=== PATIENT | male | born 1970 | race Caucasian/White ===

== ENCOUNTER 2017-01-25 09:48 | Emergency (ER) | payer OTHER, BC ==
[~2017-01-25] VITALS: Ht 185.4 cm; Wt 138.9 kg
[2017-01-25] MEDS ORDERED: NEUR300C PO (09:59)
[2017-01-25] MEDS ORDERED: TIZA4CAP3 PO (09:59)
[2017-01-25] MEDS ORDERED: GABA-282 PO ×2 (09:59)
[2017-01-25] MEDS ORDERED: DICL75TA PO (09:59)
[2017-01-25] MEDS ORDERED: ZOCO20TA PO (09:59)
[2017-01-25] MEDS ORDERED: ASPI81TA85 PO (09:59)
[2017-01-25 11:09] VITALS: BP 150/90
== END 2017-01-25 11:10 | disposition home or self-care (01) ==
LOC: EDBD 09:48 → M ED 10:39
DX: S00.93XA Contusion of unspecified part of head, initial encounter (principal); W18.00XA Striking against unspecified object with subsequent fall, initial encounter; Y92.139 Unspecified place military base as the place of occurrence of the external cause; Y93.89 Activity, other specified; Y99.1 Military activity; M54.30 Sciatica, unspecified side; Z79.82 Long term (current) use of aspirin; Z79.899 Other long term (current) drug therapy

== ENCOUNTER → 2017-05-17 | Outpatient (REF) | payer BC ==
[~2017-05-17] MED LIST: ASPI81TA85 PO; DICL75TA PO; GABA-282 PO; NEUR300C PO; TIZA4CAP3 PO; ZOCO20TA PO
== END ==
LOC: M SFHCLERA 08:07
PROVIDERS: ATTEND Family Medicine
DX: E66.01 Morbid (severe) obesity due to excess calories (principal)

== ENCOUNTER → 2017-08-17 | Outpatient (REF) | payer BC ==
[2017-08-17 11:51] LABS: BASO % 0.6 % (0.0-1.0); EOS # 0.1 10^3/uL (0.0-0.50); EOS % 1.8 % (0.0-3.0); HEMOGLOBIN 15.5 g/dl (14.0-18.0); IMMATURE GRANULOCYTE % 0.2 % (0-0); LYMPH # 1.4 10^3/uL (1.5-4.5); LYMPH % 28.1 % (24.0-44.0); MEAN CORPUSCULAR HEMOGLOBIN 30.2 pg (27.0-33.0); MEAN CORPUSCULAR HGB CONC 34.4 g/dl (32.0-36.5); MEAN CORPUSCULAR VOLUME 87.5 fl (80.0-96.0); MONO # 0.3 10^3/uL (0.0-0.8); MONO % 5.8 % (0.0-5.0); NEUTROPHILS # 3.2 10^3/uL (1.8-7.7); NEUTROPHILS % 63.5 % (36.0-66.0); PLATELET COUNT, AUTOMATED 205 10^3/uL (150-450); RED BLOOD COUNT 5.14 10^6/uL (4.30-6.10); RED CELL DISTRIBUTION WIDTH 12.9 % (11.5-14.5)
[2017-08-17 12:03] LABS: ALBUMIN 4.2 GM/DL (3.2-5.2); ALBUMIN/GLOBULIN RATIO 1.35 (1.00-1.93); ALKALINE PHOSPHATASE 101 U/L (45-117); ALT/SGPT 58 U/L (12-78); ANION GAP 6 MEQ/L (8-16); AST/SGOT 30 U/L (7-37); BILIRUBIN,TOTAL 0.4 MG/DL (0.2-1.0); BLOOD UREA NITROGEN 25 MG/DL (7-18); CALCIUM LEVEL 8.6 MG/DL (8.5-10.1); CARBON DIOXIDE LEVEL 31 MEQ/L (21-32); CHLORIDE LEVEL 105 MEQ/L (98-107); CHOLESTEROL LEVEL 159 MG/DL (<200); CHOLESTEROL RISK RATIO 2.741 (<5); CREATININE FOR GFR 0.87 MG/DL (0.70-1.30); GLOMERULAR FILTRATION RATE > 60.0 (>60); GLUCOSE, FASTING 108 MG/DL (70-105); HDL CHOLESTEROL 58 MG/DL (>40); LDL CHOLESTEROL 64.6 MG/DL (<100); NON-HDL-C 101 MG/DL; POTASSIUM SERUM 4.3 MEQ/L (3.5-5.1); SODIUM LEVEL 142 MEQ/L (136-145); TOTAL PROTEIN 7.3 GM/DL (6.4-8.2); TRIGLYCERIDES LEVEL 182 MG/DL (<150)
[2017-08-17 12:12] LABS: ESTIMATED AVERAGE GLUCOSE 117 MG/DL (60-110); HEMOGLOBIN A1c 5.7 %
== END ==
LOC: M SFHCLERA 08:12
DX: E66.01 Morbid (severe) obesity due to excess calories (principal)
CPT/HCPCS: 84443

== ENCOUNTER → 2018-06-08 | Outpatient (REF) | payer BC ==
[2018-06-08 12:51] LABS: ALBUMIN 4.4 GM/DL (3.2-5.2); ALBUMIN/GLOBULIN RATIO 1.57 (1.00-1.93); ALKALINE PHOSPHATASE 85 U/L (45-117); ALT/SGPT 46 U/L (12-78); ANION GAP 6 MEQ/L (8-16); AST/SGOT 26 U/L (7-37); BILIRUBIN,TOTAL 0.4 MG/DL (0.2-1.0); BLOOD UREA NITROGEN 19 MG/DL (7-18); CALCIUM LEVEL 9.2 MG/DL (8.5-10.1); CARBON DIOXIDE LEVEL 31 MEQ/L (21-32); CHLORIDE LEVEL 104 MEQ/L (98-107); CHOLESTEROL LEVEL 153 MG/DL (<200); CREATININE FOR GFR 0.96 MG/DL (0.70-1.30); GLOMERULAR FILTRATION RATE > 60.0 (>56); GLUCOSE, FASTING 106 MG/DL (70-100); HDL CHOLESTEROL 60 MG/DL (>40); LDL CHOLESTEROL 80 MG/DL (<100); NON-HDL-C 93 MG/DL; POTASSIUM SERUM 4.3 MEQ/L (3.5-5.1); SODIUM LEVEL 141 MEQ/L (136-145); TOTAL PROTEIN 7.2 GM/DL (6.4-8.2); TRIGLYCERIDES LEVEL 64 MG/DL (<150)
[2018-06-08 13:05] LABS: ESTIMATED AVERAGE GLUCOSE 123 MG/DL (60-110); HEMOGLOBIN A1c 5.9 %
== END ==
LOC: M SFHCLERA 08:15
DX: E66.01 Morbid (severe) obesity due to excess calories (principal)
CPT/HCPCS: 80053

== ENCOUNTER 2018-07-13 08:50 | Day surgery (SDC) | payer BC ==
[~2018-07-13] VITALS: Ht 185.4 cm; Wt 136.4 kg
[~2018-07-13 08:50] MED LIST changes: +ATOR40TA75 PO; -GABA-282 PO; +GABA-843 PO; +GABA-845 PO; +MULTCAP PO; +TIZA4CAP PO; -TIZA4CAP3 PO
[2018-07-13] MEDS ORDERED: PROPOFOL 200 MG/20 ML VIAL As Ordered ONE (09:13)
[2018-07-13] MEDS ORDERED: LIDOCAINE 2% INJ 100 MG/5 ML SDV (FOR ANES.) As Ordered ONE (09:13)
[2018-07-13] MEDS ORDERED: NS 1,000 ML IV ONE (09:30)
--- NOTE | 2018-07-13 11:09 | ROOR ---
Patient Name: Greg Cortez Procedure Date: 07/13/2018 10:23 AM Date of : 1970 Age: 48 Room: [facility] Gender: Male Note Status: Finalized Procedure: Colonoscopy Indications: Screening for colorectal malignant neoplasm Providers: Humphrey Quinteros MD Referring MD: Ernesto CABAN MD Requesting Provider: Medicines: Monitored Anesthesia Care Complications: No immediate complications. Procedure: Pre-Anesthesia Assessment: - Prior to the procedure, a History and Physical was performed, and patient medications and allergies were reviewed. The patient is competent. The risks and benefits of the procedure and the sedation options and risks were discussed with the patient. All questions were answered and informed consent was obtained. Patient identification and proposed procedure were verified by the physician, the nurse and the anesthesiologist in the procedure room. Mental Status Examination: alert and oriented. Airway Examination: normal oropharyngeal airway and neck mobility. Respiratory Examination: clear to auscultation. CV Examination: normal. Prophylactic Antibiotics: The patient does not require prophylactic antibiotics. Prior Anticoagulants: The patient has taken no previous anticoagulant or antiplatelet agents. ASA Grade Assessment: II - A patient with mild systemic disease. After reviewing the risks and benefits, the patient was deemed in satisfactory condition to undergo the procedure. The anesthesia plan was to use monitored anesthesia care (MAC). Immediately prior to administration of medications, the patient was re-assessed for adequacy to receive sedatives. The heart rate, respiratory rate, oxygen saturations, blood pressure, adequacy of pulmonary ventilation, and response to care were monitored throughout the procedure. The physical status of the patient was re-assessed after the procedure. The Colonoscope was introduced through the anus and advanced to the terminal ileum, with identification of the appendiceal orifice and IC valve. The colonoscopy was performed without difficulty. The patient tolerated the procedure well. The quality of the bowel preparation was good. The terminal ileum, ileocecal valve, appendiceal orifice, and rectum were photographed. Scope insertion time was 4 minutes. Scope withdrawal time was 10 minutes. The total duration of the procedure was 14 minutes. Findings: The perianal and digital rectal examinations were normal. The terminal ileum appeared normal. Patchy mild inflammation characterized by erosions and aphthous ulcerations was found in the recto-sigmoid colon and in the descending colon. Biopsies were taken with a cold forceps for histology. Verification of patient identification for the specimen was done by the physician and nurse using the patient's name, date and medical record number. Estimated blood loss was minimal. Non-bleeding external and internal hemorrhoids were found during retroflexion. The hemorrhoids were small. There is no endoscopic evidence of polyps in the entire colon. Impression: - The examined portion of the ileum was normal. - Patchy mild inflammation was found in the recto-sigmoid colon and in the descending colon secondary to colitis. Biopsied. - Non-bleeding external and internal hemorrhoids. Recommendation: - Patient has a contact number available for emergencies. The signs and symptoms of potential delayed complications were discussed with the patient. Return to normal activities tomorrow. Written discharge instructions were provided to the patient. - High fiber diet. - Continue present medications. - Await pathology results. - Repeat colonoscopy in 10 years for screening purposes. - Based on the biopsy results you will receive a phone call from GI clinic in 2-3 weeks to review the pathology results AND/OR your results will be faxed to your Primary care physician. - Return to primary care physician. Humphrey Quinteros MD Humphrey Quinteros MD 07/13/2018 11:09:25 AM This report has been signed electronically. Number of Addenda: 0 Note Initiated On: 07/13/2018 10:23 AM Estimated Blood Loss: Estimated blood loss was minimal.
[2018-07-13 11:20] VITALS: BP 115/55
== END 2018-07-13 11:27 | disposition home or self-care (01) ==
LOC: M OPP 08:50
PROVIDERS: ATTEND Internal Medicine Gastroenterology
DX: Z12.11 Encounter for screening for malignant neoplasm of colon (principal); K64.8 Other hemorrhoids; E78.5 Hyperlipidemia, unspecified; M12.9 Arthropathy, unspecified; Z79.82 Long term (current) use of aspirin; Z79.899 Other long term (current) drug therapy

== ENCOUNTER → 2018-08-29 | Outpatient (CLI) | payer BC ==
--- NOTE | 2018-08-31 13:06 | SLEEPCENT ---
DATE OF PROCEDURE: 08/29/2018 ORDERED BY: TAPAN Orourke Nocturnal polysomnography was performed for evaluation of sleep physiology in this patient with a history of excessive somnolence and snoring who has comorbidities of arthritis and obesity. 7 hours and 7 minutes of data were reviewed. There were 347 minutes of sleep identified. Sleep latency was prolonged at 58 minutes. Rapid eye movement (REM) latency was normal at 97 minutes. Sleep architecture was fair with 3-4 REM cycles. Some fragmentation was seen. Overall sleep efficiency was 82%. The electrocardiogram showed sinus rhythm with an average heart rate of 58 beats per minute. EEG showed normal waveforms for awake and sleep stages. There were 46 respiratory events identified of 10 seconds in duration or greater for an apnea-hypopnea index of 7.9. The events were primarily obstructive not exclusive to sleep stage nor body posture. Arousals from respiratory events occurred 4.5 times per hour and oxygen desaturations were seen into the 80s. There was minimal activity in the limb leads. Limb movement arousals occurred 3.3 times per hour. Snoring was noted. IMPRESSION: Obstructive sleep apnea syndrome (G47.33). Apnea-hypopnea index 7.9. RECOMMENDATIONS: The patient should be encouraged to return to the sleep disorder center for pressure therapy. In the interim, alcohol and sedative avoidance should be practiced and caution exercised during the operation of motor vehicles.
== END ==
LOC: M SLEEP 19:38
PROVIDERS: ATTEND Nurse Practitioner Family
DX: G47.33 Obstructive sleep apnea (adult) (pediatric) (principal); R40.0 Somnolence

== ENCOUNTER → 2018-10-03 | Outpatient (CLI) | payer BC ==
--- NOTE | 2018-10-03 10:08 | REP ---
Clinical: Cough and fatigue . Comparison: 07/04/2014 . Technique: PA and lateral. Findings: The mediastinum and cardiac silhouette are normal. The lung henley are clear and without acute consolidation, effusion, or pneumothorax. The skeletal structures are intact and normal. Impression: 1. No acute cardiopulmonary process. Electronically Signed by Deangelo Morejon MD 10/03/2018 09:59 A
== END ==
LOC: M LRY 09:42
PROVIDERS: ATTEND Physician Assistant
DX: R05 Cough (principal); R53.83 Other fatigue

== ENCOUNTER → 2018-10-10 | Outpatient (CLI) | payer BC ==
--- NOTE | 2018-10-16 23:16 | SLEEPCENT ---
DATE OF PROCEDURE: 10/10/2018 Ordered by: Brandy Hoang Nocturnal polysomnography was performed for the titration of pressure therapy in this patient with obstructive sleep apnea syndrome. Apnea-hypopnea index 7.9. For testing, a [employer] Quattro Mirage full face mask of medium size was used, 5 cm of water pressure were applied to the circuit and the lights extinguished. 6 hours and 22 minutes of data were reviewed. There were 314 minutes of sleep identified. Sleep latency was prolonged at 42 minutes. REM latency was prolonged at 191 minutes. Sleep architecture improved with optimal titration of pressure therapy. Overall sleep efficiency was 83%. The electrocardiogram showed a sinus rhythm with an average heart rate of 54 beats per minute. EEG showed normal waveforms for awake and sleep. Respiratory events were fully palliated with C-PAP at a pressure of +11 and remaining measures of sleep physiology were normal. IMPRESSION Obstructive sleep apnea syndrome (G47.33) RECOMMENDATIONS Nightly use of pressure therapy 11 cm of water.
== END ==
LOC: M SLEEP 19:38
PROVIDERS: ATTEND Nurse Practitioner Family
DX: G47.33 Obstructive sleep apnea (adult) (pediatric) (principal)

== ENCOUNTER → 2018-10-29 | Outpatient (CLI) | payer BC ==
--- NOTE | 2018-10-29 16:33 | REP ---
Clinical: Bilateral groin pain. Technique: Real time junior scale ultrasound examination using linear high frequency transducer. Findings: Right groin appears normal and without evidence for hernia. Left groin demonstrates small fat containing reducible hernia at the internal ring with the peritoneal defect measuring 5.7 mm diameter on Valsalva. Impression: Small reducible fat containing left inguinal hernia at the internal ring. Electronically Signed by Deangelo Morejon MD 10/29/2018 04:25 P
--- NOTE | 2018-10-29 17:59 | REP ---
Scrotal sonography: History: Bilateral inguinal pain. Question occult hernia. Findings: High-resolution bilateral scrotal sonography shows no evidence of intratesticular mass lesion on either side. Right testis measures 4.2 x 2.7 x 3.1 cm. Left testicular dimensions are 4.5 x 2.3 x 3.3 cm. Epididymi are normal and symmetric except for a cyst in the head of the epididymis on the right measuring 0.9 cm. There is a 0.3 cm cyst in the head of the epididymis on the left. Minimal bilateral hydroceles are seen. Testicular Doppler flow is normal bilaterally. Resistive indices are measured at 0.66 on the right and 0.71 on the left. There is no visible hernia or varicocele. Impression: No significant scrotal abnormality. No intratesticular lesion seen. No evidence of hernia. Electronically Signed by Wei Felton MD 10/30/2018 11:28 A
== END ==
LOC: M RAD 15:33
PROVIDERS: ATTEND Family Medicine
DX: K40.90 Unilateral inguinal hernia, without obstruction or gangrene, not specified as recurrent (principal)

== ENCOUNTER → 2018-11-08 | Outpatient (REF) | payer BC ==
[~2018-11-08] MED LIST changes: +TRAM50TA2
[2018-11-08 11:35] LABS: APPEARANCE, URINE CLEAR (CLEAR); BACTERIA, URINE AUTO NEGATIVE (NEGATIVE); BILIRUBIN, URINE AUTO NEGATIVE (NEGATIVE); BLOOD, URINE BLOOD NEGATIVE (NEGATIVE); COLOR, URINE YELLOW (YELLOW); GLUCOSE, URINE (UA) AUTO NEGATIVE (NEGATIVE); KETONE, URINE AUTO NEGATIVE (NEGATIVE); LEUKOCYTE ESTERASE, URINE AUTO NEGATIVE (NEGATIVE); NITRITE, URINE AUTO NEGATIVE (NEGATIVE); PROTEIN, URINE AUTO NEGATIVE (NEGATIVE); RBC, URINE AUTO 0 /HPF (0-3); SPECIFIC GRAVITY URINE AUTO 1.004 (1.002-1.035); SQUAMOUS EPITHELIAL CELL UR AU 0 /HPF (0-6); UROBILINOGEN, URINE AUTO 0.2 mg/dL (0.0-2.0); WBC, URINE AUTO 0 /HPF (0-3)
[2018-11-08 11:46] LABS: ALBUMIN 4.3 GM/DL (3.2-5.2); ALT/SGPT 58 U/L (12-78); BILIRUBIN,TOTAL 0.7 MG/DL (0.2-1.0); BLOOD UREA NITROGEN 11 MG/DL (7-18); CARBON DIOXIDE LEVEL 31 MEQ/L (21-32); CHLORIDE LEVEL 104 MEQ/L (98-107); CREATININE FOR GFR 0.94 MG/DL (0.70-1.30); GLOMERULAR FILTRATION RATE > 60.0 (>56); GLUCOSE, FASTING 94 MG/DL (70-100); SODIUM LEVEL 140 MEQ/L (136-145); TOTAL PROTEIN 7.3 GM/DL (6.4-8.2)
== END ==
LOC: M SFHCLERA 08:10
PROVIDERS: ATTEND Family Medicine
DX: R10.30 Lower abdominal pain, unspecified (principal)

== ENCOUNTER → 2018-11-09 | Outpatient (CLI) | payer BC ==
[~2018-11-09] MED LIST changes: +GASTROGRAFIN SOLUTION 30ML (Q9963) As Ordered ONE; +ISOVUE-370 76% 100ML VIAL (Q9967) As Ordered ONE
--- NOTE | 2018-11-09 18:31 | REP ---
Clinical: Lower abdominal pain. Comparison: 06/04/2015. Technique: Axial contrast enhanced images from the lung bases to the pubic symphysis using oral (per protocol) and 100 ml Isovue 370 intravenous contrast material with coronal and sagittal re-formations. Findings: Lung bases are clear. Visualized heart and pericardium normal. Fatty infiltration to the liver noted without focal hepatic lesion. Spleen, pancreas, gallbladder, bilateral adrenal glands and kidneys are within normal limits / stable. The right kidney demonstrates cortical scarring unchanged compared to 2015. The enteric system is without obstruction or definite acute inflammatory process. The distal appendix is mildly prominent and measures approximately 8 mm diameter with trace adjacent stranding. These findings are nonspecific, but a very mild acute early appendicitis cannot be excluded. Pelvis demonstrates normal bladder and age appropriate prostate/seminal vesicles. No ascites. No free air. No adenopathy. Abdominal aorta and vasculature without aneurysm or dissection. Musculoskeletal structures demonstrate age-related degenerative changes. Impression: 1. Very subtle prominence to the distal appendix raises the suspicion for possible early acute appendicitis and should be correlated clinically. Close observation may be warranted. 2. No further acute abdominopelvic pathology appreciated. 3. Hepatic steatosis. 4. Subtle stable cortical scarring along the posterior aspect of the right kidney. Electronically Signed by Deangelo Morejon MD 11/09/2018 06:23 P
== END ==
LOC: M RAD 15:58
PROVIDERS: ATTEND Family Medicine
DX: R10.30 Lower abdominal pain, unspecified (principal); K76.0 Fatty (change of) liver, not elsewhere classified; N28.89 Other specified disorders of kidney and ureter
CPT/HCPCS: 74177; Q9963; Q9967

== ENCOUNTER 2018-11-12 17:54 | Emergency (ER) | payer BC ==
[~2018-11-12] VITALS: Ht 185.4 cm; Wt 140.9 kg
[~2018-11-12 17:54] MED LIST changes: -GASTROGRAFIN SOLUTION 30ML (Q9963) As Ordered ONE; -ISOVUE-370 76% 100ML VIAL (Q9967) As Ordered ONE; -TRAM50TA2
[2018-11-12] MEDS ORDERED: TRAM50TA2 (18:03)
[2018-11-12] MEDS ORDERED: NS 1,000 ML IV ONE (18:30)
[2018-11-12] MEDS: GASTROGRAFIN SOLUTION 30ML PO SCH ×2 (19:15→19:20)
[2018-11-12 19:19] LABS: BASO % 0.7 % (0.0-1.0); EOS # 0.1 10^3/uL (0.0-0.50); EOS % 1.5 % (0.0-3.0); HEMOGLOBIN 15.5 g/dl (13.5-17.5); LYMPH % 35.8 % (24.0-44.0); MEAN CORPUSCULAR HEMOGLOBIN 29.9 pg (27.0-33.0); MEAN CORPUSCULAR HGB CONC 34.4 g/dl (32.0-36.5); MEAN CORPUSCULAR VOLUME 86.9 fl (80.0-96.0); MONO # 0.3 10^3/uL (0.0-0.8); MONO % 6.2 % (0.0-5.0); NEUTROPHILS # 3.1 10^3/uL (1.8-7.7); NEUTROPHILS % 55.6 % (36.0-66.0); PLATELET COUNT, AUTOMATED 218 10^3/uL (150-450); RED BLOOD COUNT 5.18 10^6/uL (4.30-6.10); WHITE BLOOD COUNT 5.5 10^3/uL (4.0-10.0)
[2018-11-12 19:30] LABS: ALT/SGPT 51 U/L (12-78); BILIRUBIN,DIRECT 0.2 MG/DL (0.0-0.2); BILIRUBIN,TOTAL 0.5 MG/DL (0.2-1.0); BLOOD UREA NITROGEN 13 MG/DL (7-18); CALCIUM LEVEL 8.6 MG/DL (8.5-10.1); CARBON DIOXIDE LEVEL 29 MEQ/L (21-32); CHLORIDE LEVEL 107 MEQ/L (98-107); CREATININE FOR GFR 1.18 MG/DL (0.70-1.30); GLOMERULAR FILTRATION RATE > 60.0 (>56); GLUCOSE, FASTING 190 MG/DL (70-100); LIPASE 293 U/L (73-393); POTASSIUM SERUM 3.6 MEQ/L (3.5-5.1); SODIUM LEVEL 141 MEQ/L (136-145); TOTAL PROTEIN 6.9 GM/DL (6.4-8.2)
[2018-11-12] MEDS ORDERED: MORPHINE 2 MG/ML 1ML SYRINGE (J2270) IV ONE (19:45)
[2018-11-12] MEDS ORDERED: ISOVUE-370 76% 100ML VIAL (Q9967) As Ordered ONE (20:01)
--- NOTE | 2018-11-12 22:04 | REPVR ---
EXAM: CT Abdomen and Pelvis With Contrast EXAM DATE/TIME: 11/12/2018 8:43 PM CLINICAL HISTORY: 48 years old, male; Pain; Abdominal pain; Generalized TECHNIQUE: Imaging protocol: Axial computed tomography images of the abdomen and pelvis with intravenous contrast. Coronal and sagittal reformatted images were created and reviewed. Radiation optimization: All CT scans at this facility use at least one of these dose optimization techniques: automated exposure control; mA and/or kV adjustment per patient size (includes targeted exams where dose is matched to clinical indication); or iterative reconstruction. Contrast material: ISOVUE 370 Contrast volume: 100 ml Contrast route: IV COMPARISON: CT ABD PELVIS WITH CONTRAST 11/09/2018 5:54 PM FINDINGS: Lower thorax: There is minor linear fibrosis at the right lung base. No infiltrate. ABDOMEN: Liver: There is diffuse fatty infiltration of the liver. No focal lesion. Gallbladder and bile ducts: The gallbladder is normal. Bile ducts are nondilated. Pancreas: Normal. No ductal dilation. Spleen: The spleen is normal. Adrenals: Adrenals are normal. Kidneys and ureters: There is posterior cortical scarring of the right kidney unchanged from prior scan. No focal lesion. There is no hydronephrosis. Stomach and bowel: Normal. No obstruction. No mucosal thickening. Appendix: As described on the prior scan the appendix is mildly dilated at 8 mm. On the current scan normal intraluminal air is seen. The wall is not thickened. Minimal adjacent stranding described on the prior scan is present but has not progressed. PELVIS: Bladder: The bladder is normal with no evidence of calculi. Reproductive: Unremarkable as visualized. ABDOMEN and PELVIS: Intraperitoneal space: Normal. No free air. No significant fluid collection. Bones/joints: No acute fracture. No dislocation. Soft tissues: Unremarkable. Vasculature: Normal. No abdominal aortic aneurysm. Lymph nodes: Stable small mesenteric lymph nodes. IMPRESSION: 1. Mildly dilated appendix with minimal adjacent stranding as described on previous scan. On the current scan there is normal intraluminal gas which was not seen on the prior scan and there is normal wall thickness. It is also similar to the appearance on an earlier scan from 06/04/2015. No evidence to indicate progression to acute appendicitis. 2. Fatty liver. Electronically signed by: Franklin Anderson On 11/12/2018 22:04:30 PM
[2018-11-12 22:56] VITALS: BP 123/77
--- NOTE | 2018-11-12 23:49 | REPVR ---
EXAM: US Abdomen Limited, Right Upper Quadrant EXAM DATE/TIME: 11/12/2018 11:30 PM CLINICAL HISTORY: 48 years old, male; Pain; Abdominal pain; Acute; Additional info: Right upper quadrant abdominal pain TECHNIQUE: Imaging protocol: Real-time ultrasound of the abdomen with image documentation. Examination was focused on the right upper quadrant. COMPARISON: CT ABD/PEL W/IV ORAL CONTRAS 11/12/2018 8:35 PM FINDINGS: Liver: The liver is markedly increased in echogenicity consistent with fatty infiltration. This limits evaluation. No focal lesion. Gallbladder: The gallbladder is normal. No stones. The wall is not thickened. Common bile duct: The common bile duct could not be visualized due to overlying bowel gas. Pancreas: The pancreas could not be visualized due to overlying bowel gas. Right kidney: The right kidney measures 11.5 x 5.9 x 6.1 cm. No calculus or hydronephrosis. IMPRESSION: 1. Normal gallbladder. No stones. 2. Hepatic steatosis. No focal lesion. 3. Common bile duct could not be visualized. It was not dilated on the previous CT. Electronically signed by: Franklin Anderson On 11/12/2018 23:49:21 PM
== END 2018-11-13 00:40 | disposition home or self-care (01) ==
LOC: M ED 17:54
DX: R10.11 Right upper quadrant pain (principal); R10.31 Right lower quadrant pain; K76.0 Fatty (change of) liver, not elsewhere classified; E78.5 Hyperlipidemia, unspecified; K40.90 Unilateral inguinal hernia, without obstruction or gangrene, not specified as recurrent; Z79.899 Other long term (current) drug therapy; Z79.82 Long term (current) use of aspirin
CPT/HCPCS: 36415; 74177; 76705; 80048; 80076; 81001; 83605; 83690; 85025; 96361; 96374; 99284; J2270; Q9963; Q9967

== ENCOUNTER → 2020-12-31 | Outpatient (CLI) | payer BC ==
[~2020-12-31] MED LIST changes: -ASPI81TA85 PO; +ASPI81TA86 PO; +GABA-282 PO; +GABA-283 PO; -GABA-843 PO; -GABA-845 PO; +TRAM50TA2
--- NOTE | 2020-12-31 09:08 | REP ---
INDICATION: PAIN COMPARISON: MRI dated 05/14/2016 TECHNIQUE: AP, lateral, bilateral oblique and sunrise views. FINDINGS: Moderate tricompartmental osteoarthritic degenerative changes are appreciated. Findings include osteophytosis, subchondral sclerosis/heterogeneity, and joint space narrowing. No acute fracture or dislocation. No obvious effusion. IMPRESSION: Moderate tricompartmental osteoarthritic degenerative changes. Findings may be slightly progressive as compared to prior MRI. <Electronically signed by Deangelo Morejon > 12/31/20 0905
== END ==
LOC: M WUC 08:12
PROVIDERS: ATTEND Nurse Practitioner Family
DX: M17.12 Unilateral primary osteoarthritis, left knee (principal)

== ENCOUNTER → 2022-10-12 | Outpatient (CLI) | payer BC ==
[~2022-10-12] MED LIST changes: +SIMV-253 PO; -ZOCO20TA PO
[2022-10-12 09:41] LABS: BASO % 0.6 % (0.0-1.0); EOS # 0.1 10^3/uL (0.0-0.5); EOS % 1.7 % (0.0-3.0); HEMATOCRIT 46.6 % (42.0-52.0); HEMOGLOBIN 15.8 g/dl (13.5-17.5); LYMPH # 1.8 10^3/uL (1.5-5.0); LYMPH % 37.9 % (24.0-44.0); MEAN CORPUSCULAR HGB CONC 33.9 g/dl (32.0-36.5); MEAN CORPUSCULAR VOLUME 88.6 fl (80.0-96.0); MONO # 0.3 10^3/uL (0.0-0.8); MONO % 6.9 % (2.0-8.0); NEUTROPHILS # 2.4 10^3/uL (1.5-8.5); NEUTROPHILS % 52.9 % (36.0-66.0); PLATELET COUNT, AUTOMATED 186 10^3/uL (150-450); RED BLOOD COUNT 5.26 10^6/uL (4.30-6.10); WHITE BLOOD COUNT 4.6 10^3/uL (4.0-10.0)
[2022-10-12 09:56] LABS: PROSTATIC SPECIFIC AG MONITOR 0.94 NG/ML (< 4.00)
[2022-10-12 09:58] LABS: ALBUMIN 4.2 G/DL (3.2-5.2); ALKALINE PHOSPHATASE 81 U/L (46-116); ALT/SGPT 53 U/L (7.0-40); AST/SGOT 31 U/L (<34); BILIRUBIN,TOTAL 0.8 MG/DL (0.3-1.2); BLOOD UREA NITROGEN 14 MG/DL (9-23); CALCIUM LEVEL 9.2 MG/DL (8.5-10.1); CARBON DIOXIDE LEVEL 30 MMOL/L (20-31); CHLORIDE LEVEL 104 MMOL/L (98-107); CHOLESTEROL LEVEL 145 MG/DL (<200); CHOLESTEROL RISK RATIO 2.73 (<5); CREATININE FOR GFR 0.83 MG/DL (0.70-1.30); GLOMERULAR FILTRATION RATE > 60.0 (>56); GLUCOSE, FASTING 107 MG/DL (60-100); HDL CHOLESTEROL 53.1 MG/DL (>40); LDL CHOLESTEROL 67.5 MG/DL (<100); NON-HDL-C 92 MG/DL; POTASSIUM SERUM 4.1 MMOL/L (3.5-5.1); SODIUM LEVEL 142 MMOL/L (136-145); TOTAL PROTEIN 7.2 G/DL (5.7-8.2); TRIGLYCERIDES LEVEL 122 MG/DL (<150)
== END ==
LOC: M WUC 08:36
PROVIDERS: ATTEND Family Medicine
DX: Z00.00 Encounter for general adult medical examination without abnormal findings (principal); N41.1 Chronic prostatitis; M19.90 Unspecified osteoarthritis, unspecified site; F43.10 Post-traumatic stress disorder, unspecified; M54.30 Sciatica, unspecified side

== ENCOUNTER → 2023-05-31 | Outpatient (CLI) | payer BC ==
[~2023-05-31] MED LIST changes: -GABA-283 PO; +GABA-284 PO
[2023-05-31 08:05] LABS: HEMATOCRIT 45.9 % (42.0-52.0); MEAN CORPUSCULAR HEMOGLOBIN 31.1 pg (27.0-33.0); MEAN CORPUSCULAR HGB CONC 34.9 g/dl (32.0-36.5); MEAN CORPUSCULAR VOLUME 89.3 fl (80.0-96.0); PLATELET COUNT, AUTOMATED 207 10^3/uL (150-450); RED BLOOD COUNT 5.14 10^6/uL (4.30-6.10); WHITE BLOOD COUNT 6.1 10^3/uL (4.0-10.0)
[2023-05-31 08:22] LABS: INR 1.06; PROTHROMBIN TIME 13.5 SECONDS (12.5-14.5)
[2023-05-31 08:25] LABS: ERYTHROCYTE SEDIMENTATION RATE 13 mm/hr (0-20)
[2023-05-31 08:28] LABS: ALKALINE PHOSPHATASE 96 U/L (46-116); ALT/SGPT 52 U/L (7.0-40); AST/SGOT 27 U/L (<34); BILIRUBIN,TOTAL 0.8 MG/DL (0.3-1.2); BLOOD UREA NITROGEN 12 MG/DL (9-23); CALCIUM LEVEL 9.1 MG/DL (8.5-10.1); CARBON DIOXIDE LEVEL 34 MMOL/L (20-31); CHLORIDE LEVEL 102 MMOL/L (98-107); CREATININE FOR GFR 0.93 MG/DL (0.70-1.30); GLOMERULAR FILTRATION RATE > 60.0 (>56); GLUCOSE, FASTING 120 MG/DL (60-100); SODIUM LEVEL 143 MMOL/L (136-145); TOTAL PROTEIN 7.1 G/DL (5.7-8.2)
== END ==
LOC: M RAD 07:03
PROVIDERS: ATTEND Orthopaedic Surgery
DX: Z01.818 Encounter for other preprocedural examination (principal); M16.11 Unilateral primary osteoarthritis, right hip

== ENCOUNTER → 2024-04-11 | Outpatient (CLI) | payer BC ==
[2024-04-11 09:23] LABS: BASO % 0.6 % (0.0-1.0); EOS # 0.1 10^3/uL (0.0-0.5); EOS % 1.7 % (0.0-3.0); HEMOGLOBIN 15.6 g/dl (13.5-17.5); LYMPH # 1.4 10^3/uL (1.5-5.0); LYMPH % 27.4 % (24.0-44.0); MEAN CORPUSCULAR HEMOGLOBIN 29.8 pg (27.0-33.0); MEAN CORPUSCULAR HGB CONC 33.9 g/dl (32.0-36.5); MEAN CORPUSCULAR VOLUME 87.8 fl (80.0-96.0); MONO # 0.4 10^3/uL (0.0-0.8); MONO % 7.4 % (2.0-8.0); NEUTROPHILS # 3.3 10^3/uL (1.5-8.5); NEUTROPHILS % 62.7 % (36.0-66.0); RED BLOOD COUNT 5.24 10^6/uL (4.30-6.10); WHITE BLOOD COUNT 5.3 10^3/uL (4.0-10.0)
[2024-04-11 09:43] LABS: ALBUMIN 4.1 G/DL (3.2-5.2); ALKALINE PHOSPHATASE 97 U/L (46-116); ALT/SGPT 48 U/L (7.0-40); AST/SGOT 28 U/L (<34); BILIRUBIN,TOTAL 0.7 MG/DL (0.3-1.2); BLOOD UREA NITROGEN 13 MG/DL (9-23); CALCIUM LEVEL 9.6 MG/DL (8.5-10.1); CARBON DIOXIDE LEVEL 30 MMOL/L (20-31); CHLORIDE LEVEL 107 MMOL/L (98-107); CHOLESTEROL LEVEL 138 MG/DL (<200); CHOLESTEROL RISK RATIO 2.54 (<5); CREATININE FOR GFR 0.87 MG/DL (0.70-1.30); GLOMERULAR FILTRATION RATE > 60.0 (>56); GLUCOSE, FASTING 110 MG/DL (60-100); HDL CHOLESTEROL 54.3 MG/DL (>40); LDL CHOLESTEROL 67.3 MG/DL (<100); NON-HDL-C 83.7 MG/DL; POTASSIUM SERUM 4.1 MMOL/L (3.5-5.1); PSA SCREENING 1.02 NG/ML (< 4.00); SODIUM LEVEL 141 MMOL/L (136-145); TOTAL PROTEIN 7.4 G/DL (5.7-8.2); TRIGLYCERIDES LEVEL 82 MG/DL (<150)
[2024-04-11 09:53] LABS: PLATELET COUNT, AUTOMATED 233 10^3/uL (150-450)
== END ==
LOC: M LAB 08:21
PROVIDERS: ATTEND Family Medicine
DX: E78.49 Other hyperlipidemia (principal); G47.33 Obstructive sleep apnea (adult) (pediatric); M16.6 Other bilateral secondary osteoarthritis of hip; E66.9 Obesity, unspecified; R52 Pain, unspecified; R73.03 Prediabetes
CPT/HCPCS: 36415; 80053; 80061; 85025; G0103